=== PATIENT | male | born 2005 | race Caucasian/White ===

== ENCOUNTER 2024-07-07 12:05 | Outpatient (CLI) | payer BC | END 2024-07-07 12:06 | disposition home or self-care (01) | LOC: ULT 12:05 | PROVIDERS: ATTEND Family Medicine | DX: R06.02 Shortness of breath (principal); D56.9 Thalassemia, unspecified; R74.8 Abnormal levels of other serum enzymes | CPT/HCPCS: 76700; 93306 ==